=== PATIENT | female | born 1980 | race Caucasian/White ===

== ENCOUNTER 2025-02-17 12:23 | Outpatient (CLI) | payer OTHER, SELFPAY | END 2025-02-17 12:24 | disposition home or self-care (01) | PROVIDERS: PCP Family Medicine; Visit Provider Physician Assistant | DX: E16.1 Other hypoglycemia (principal); Z98.84 Bariatric surgery status | CPT/HCPCS: 36415; 83525 ==

== ENCOUNTER 2025-02-19 07:21 | Outpatient (CLI) | payer OTHER, SELFPAY ==
[2025-02-20 21:49] LABS: Insulin, Fasting 5 uIU/mL (3-25)
== END 2025-02-19 07:22 | disposition home or self-care (01) ==
LOC: LAB 07:23
PROVIDERS: PCP Family Medicine; Visit Provider Physician Assistant
DX: E16.1 Other hypoglycemia (principal); Z98.84 Bariatric surgery status
CPT/HCPCS: 36415; 83525